=== PATIENT | female | born 1995 | race Caucasian/White ===

== ENCOUNTER 2016-11-08 17:57 | Emergency (ER) | payer MEDICAID ==
[~2016-11-08] VITALS: Ht 160 cm; Wt 52.0 kg
[2016-11-08 18:02] VITALS: Ht 160 cm; Wt 52.0 kg
[2016-11-08] MEDS ORDERED: SOD CHLORIDE 0.9% 1,000 ML IV STA (18:18)
[2016-11-08] MEDS ORDERED: KETOROLAC 30 MG INJ IV STA (18:18)
[2016-11-08] MEDS ORDERED: ONDANSETRON 4 MG INJ IV STA (18:18)
[2016-11-08] MEDS ORDERED: ACETAMINOPHEN 500 MG TAB PO STA (18:30)
--- NOTE | 2016-11-08 18:55 | ERD ---
ER Documentation Chief Complaint Date/Time DATE: 11/08/16 TIME: 18:52 Chief Complaint pt bib friend with c/o fever , right abd/flank pain HPI 31-year-old female presents here in emergency department for complaints of fever , right flank pain complaining of right thumb pain radiating to the right abdominal area urinary urgency and frequency that started 3 days ago. Patient started to have fever today, has nausea and vomiting also. Patient described the pain as sharp pain, 6/10 scale, accompanied with urinary urgency and frequency. Patient denies any dysuria. Patient was complaining of vomiting but denies any blood in the vomit. Patient denies any diarrhea or constipation. ROS All systems reviewed and are negative except as per history of present illness. Medications Home Meds Active Scripts Acetaminophen* (Tylophen*) 500 Mg Capsule, 1 CAP PO Q6H Y for PAIN AND OR ELEVATED TEMP, #20 CAP Prov:TONIA RODRÍGUEZ NP 11/08/16 Ibuprofen* (Motrin*) 600 Mg Tab, 600 MG PO Q6H Y for PAIN AND OR ELEVATED TEMP, #30 TAB Prov:TONIA RODRÍGUEZ NP 11/08/16 Phenazopyridine Hcl* (Pyridium*) 200 Mg Tab, 200 MG PO TID Y for URINARY PAIN, # 6 TAB Prov:TONIA RODRÍGUEZ NP 11/08/16 Ondansetron (Ondansetron Odt) 4 Mg Tab.rapdis, 4 MG PO Q8 Y for NAUSEA AND/OR VOMITING, #30 TAB Prov:TONIA RODRÍGUEZ NP 11/08/16 Ciprofloxacin Hcl* (Ciprofloxacin Hcl*) 500 Mg Tablet, 500 MG PO BID for 10 Days , TAB Prov:TONIA RODRÍGUEZ NP 11/08/16 Reported Medications [none] Unknown Strength No Conflict Check 11/08/16 Allergies Allergies: Coded Allergies: No Known Allergy (Unverified , 11/08/16) PMhx/Soc Medical and Surgical Hx: pt denies Medical Hx, pt denies Surgical Hx FmHx Family History: No coronary disease, No diabetes, No other Physical Exam Vitals Vital Signs Date Time Temp Pulse Resp B/P Pulse Ox O2 Delivery O2 Flow Rate FiO2 11/08/16 20:09 98.4 105 16 102/51 99 Room Air 11/08/16 18:02 104.7 120 18 155/94 100 Physical Exam GENERAL: The patient is well developed and appropriate for usual state of health, in no apparent distress. CHEST: Clear to auscultation bilaterally. There are no rales, wheezes or rhonchi. HEART: Regular rate and rhythm. No murmurs, clicks, rubs or gallops. No S3 or S4. ABDOMEN: Soft, nontender and nondistended. Good bowel sounds. No rebound or guarding. No gross peritonitis. No gross organomegaly or masses. No Lindsay sign or McBurney point tenderness. BACK: No midline tenderness, right flank/CVA tenderness noted. EXTREMITIES: Equal pulses bilaterally. There is no peripheral clubbing, cyanosis or edema. No focal swelling or erythema. Full range of motion. Grossly neurovascularly intact. NEURO: Alert and oriented. Cranial nerves 2-12 intact. Motor strength in all 4 extremities with 5/5 strength. Sensation grossly intact. Normal speech and gait. SKIN: There is no apparent rash or petechia. The skin is warm and dry. HEMATOLOGIC AND LYMPHATIC: There is no evidence of excessive bruising or lymphedema. No gross cervical, axillary, or inguinal lymphadenopathy. Result Diagram: 11/08/16189911/08/161899 Results 24 hrs Laboratory Tests Test 11/08/16 19:00 White Blood Count 22.610^3/ul Red Blood Count 3.8310^6/ul Hemoglobin 12.2g/dl Hematocrit 36.1% Mean Corpuscular Volume 94.3fl Mean Corpuscular Hemoglobin 31.9pg Mean Corpuscular Hemoglobin Concent 33.8g/dl Red Cell Distribution Width 13.0% Platelet Count 48976^3/UL Mean Platelet Volume 9.9fl Neutrophils % % Segmented Neutrophils % (Manual) 95.0% Band Neutrophils % (Manual) 3% Lymphocytes % % Monocytes % % Monocytes % (Manual) 1% Eosinophils % % Basophils % % Plasma Cells % (manual) 1% Nucleated Red Blood Cells % 0.0/100WBC Neutrophils # (Manual) 21.610^3/ul Band Neutrophils # 0.610^3/ul Lymphocytes # 10^3/ul Monocytes # 10^3/ul Absolute Monocytes (Manual) 0.210^3/ul Eosinophils # 10^3/ul Basophils # 10^3/ul Plasma Cells # (manual) 0.210^3/ul Nucleated Red Blood Cells # 10^3/ul Platelet Morphology Comment @See below Anisocytosis 1+ Microcytosis 1+ Urine Color YELLOW Urine Clarity CLOUDY Urine pH 6.0 Urine Specific [place] 1.015 Urine Ketones TRACEmg/dL Urine Nitrite POSITIVEmg/dL Urine Bilirubin NEGATIVEmg/dL Urine Urobilinogen 1+mg/dL Urine Leukocyte Esterase 3+Jacqueline/ul Urine Microscopic RBC 15/HPF Urine Microscopic WBC > 182/HPF Urine Bacteria FEW/HPF Urine Mucus FEW/HPF Urine Hemoglobin 2+mg/dL Urine Glucose NEGATIVEmg/dL Urine Total Protein 2+mg/dl Sodium Level 137mmol/L Potassium Level 3.2mmol/L Chloride Level 100mmol/L Carbon Dioxide Level 24mmol/L Anion Gap 16 Blood Urea Nitrogen 15mg/dl Creatinine 0.81mg/dl Glucose Level 116mg/dl Calcium Level 9.0mg/dl Total Bilirubin 0.8mg/dl Direct Bilirubin 0.00mg/dl Indirect Bilirubin 0.8mg/dl Aspartate Amino Transf (AST/SGOT) 11IU/L Alanine Aminotransferase (ALT/SGPT) 21IU/L Alkaline Phosphatase 68IU/L Total Protein 7.6g/dl Albumin 4.3g/dl Globulin 3.30g/dl Albumin/Globulin Ratio 1.30 Lipase 12U/L Current Medications Medications (Trade) Dose Ordered Sig/Kristen Route PRN Reason Start Time Stop Time Status Last Admin Dose Admin Sodium Chloride (NS) 1,000 ml @ 1,000 mls/hr Q1H STAT IV 11/08/16 18:18 11/08/16 19:17 DC 11/08/16 19:06 Ondansetron HCl (Zofran Inj) 4 mg ONCE STAT IV 11/08/16 18:18 11/08/16 18:19 DC 11/08/16 19:06 Ketorolac Tromethamine (Toradol) 30 mg ONCE STAT IV 11/08/16 18:18 11/08/16 18:20 DC 11/08/16 19:06 Acetaminophen (Tylenol Tab) 500 mg ONCE STAT PO 11/08/16 18:30 11/08/16 18:31 DC 11/08/16 19:05 Potassium Chloride 40 meq 40 meq ONCE ONCE PO 11/08/16 20:00 11/08/16 20:01 DC 11/08/16 20:05 Ceftriaxone Sodium (Rocephin) 50 ml @ 100 mls/hr ONCE ONCE IVPB 11/08/16 21:00 11/08/16 21:29 UNV Patient was given medicines for fever control here in the emergency department. After treatment, patient temperature improved and lower. Patient appears well and is hemodynamically stable. Patient was given medication for pain here in emergency department, after treatment, patient verbalized feeling much better. Patient's pain is improved.Patient was given Zofran here in the emergency department. After treatment, patient was able to tolerate po fluids here in the emergency department without any vomiting. There is no signs and symptoms of dehydration. Normal saline IV bolus was given here in emergency department for rehydration, patient tolerated IV fluids. IV Rocephin was given here in emergency department, tolerated medication well. PROCEDURE: CT Abdomen and Pelvis without contrast CLINICAL INDICATION: Abdominal pain TECHNIQUE: Transaxial images were obtained through the abdomen and pelvis on a multi-slice scanner without the intravenous contrast administration. No oral contrast had previously been given. Sagittal and coronal re-formations were subsequently reconstructed. One or more of the following dose reduction techniques were used: - Automated exposure control. - Adjustment of the mA and/or kV according to patient size. - Use of iterative reconstruction technique. Radiation dose: CTDIvol = 4.78 mGy; DLP = 275.57 mGy-cm. COMPARISON: No prior studies are available for comparison. FINDINGS: Lung bases: The visualized lung bases appear unremarkable. Liver: The liver is mildly enlarged with no focal lesion identified. Gallbladder: The wall is not thickened. No radiopaque stones are identified. Bile ducts: The intra and extrahepatic bile ducts are normal in caliber. Pancreas: Appears normal with no mass or inflammation evident. Spleen: Normal in size with no focal lesion. Adrenals: Normal with no mass identified. Kidneys, ureters and bladder: The kidneys are normal in size and there is no mass, pathological calcification, or hydronephrosis evident. There is no perinephric stranding. The ureters are normal in caliber and no ureteroliths are identified. The bladder appears unremarkable. Reproductive organs: The uterus is midline. No adnexal mass is evident. Stomach and bowel: The stomach appears unremarkable. There are several moderately air and fluid distended segments of proximal small bowel with no abrupt caliber change. This is most compatible with ileus. The colon appears unremarkable. There is no evidence of bowel obstruction or inflammation. Appendix: There are no findings to suggest appendicitis. Peritoneum: No free intraperitoneal fluid or air is identified. There is a small fat containing umbilical hernia. Aorta: Normal in caliber with no aneurysmal dilatation. IVC: Unremarkable. Lymph nodes: No pathologically enlarged nodes are identified. Osseous structures: Posterior rods and pedicular screws are seen to the thoracic spine extending inferiorly to the level of T12. This results in considerable artifact. IMPRESSION: 1. Mild hepatomegaly with no focal lesion. 2. Mild ileus localized to the left upper quadrant. There is no evidence of bowel obstruction or inflammation. 3. No evidence of urinary outflow obstruction or ureterolithiasis. 4. There is no free intraperitoneal fluid or air. 5. Fixation rods are seen within the thoracic spine extending inferiorly to the level of T12. Physician Rafa Date Time Electronically viewed and signed by Physician Rafa on 11/08/2016 20:24 Procedures/[facility] Medical Decision Making: Patient's symptoms was likely consistent with pyelonephritis. Patient was given IV Rocephin here in emergency department, most active causing the elevated white count, fever, nausea vomiting and right flank pain. At this time, patient appears well and is hemodynamically stable, no risk factors. Patient is young, no other medical problems, outpatient management is appropriate at this time, I discussed this case with my attending physician, Dr. Ramirez. He agrees with plan at this time,strict return to ER precautions was advised that patient for worsening symptoms or not improvement. There is low suspicion for abdominal emergencies at this time. Patients abdominal exam is normal at this time. Patients radiology exam does not show any abdominal emergencies at this time. There is low suspicion for appendicitis , cholecystitis, abdominal aortic aneurysms or peritonitis at this time. There is low suspicion for sepsis. Patient appears well and is hemodynamically stable. no Septic stone, no obstructed stone. Disposition: Home. Condition: Stable Prescription ciprofloxacin, Pyridium, ibuprofen, Tylenol, Zofran. Instructions: Patient is advised to take medications as prescribed. Patient is advised to rest, increase fluid intake and do brat diet for next 1-2 days and progress as tolerated. Patient is advised that if symptoms are worse, severe abdominal pain, uncontrolled vomiting, high fever, severe flank pain, worst signs and symptoms, to return to the emergency department immediately. Otherwise, patient can follow up with primary care doctor in 5-7 days. Departure Diagnosis: Primary Impression: Pyelonephritis Condition: Stable Patient Instructions: Pyelonephritis, Female (Adult) Additional Instructions: Patient is advised to take medications as prescribed. Patient is advised to rest, increase fluid intake and do brat diet for next 1-2 days and progress as tolerated. Patient is advised that if symptoms are worse, severe abdominal pain , uncontrolled vomiting, high fever, severe flank pain, worst signs and symptoms , to return to the emergency department immediately. Otherwise, patient can follow up with primary care doctor in 5-7 days. TONIA RODRÍGUEZ NP Nov 08, 2016 18:55
[2016-11-08 19:14] LABS: ABNORMAL IP MESSAGE 1; HEMATOCRIT 36.1 % (37.0-47.0); HEMOGLOBIN 12.2 g/dl (12.0-16.0); MEAN CORPUSCULAR HEMOGLOBIN 31.9 pg (29.0-33.0); MEAN CORPUSCULAR HGB CONC 33.8 g/dl (32.0-37.0); MEAN CORPUSCULAR VOLUME 94.3 fl (82.0-101.0); MEAN PLATELET VOLUME 9.9 fl (7.4-10.4); PLATELET COUNT 184 10^3/UL (140-415); RED BLOOD COUNT 3.83 10^6/ul (4.20-5.40); WHITE BLOOD COUNT 22.6 10^3/ul (4.8-10.8)
[2016-11-08 19:17] LABS: POSITIVE DIFF @See below
[2016-11-08 19:23] LABS: ADD UMIC YES; UR ASCORBIC ACID NEGATIVE (NEGATIVE); UR BACTERIA FEW /HPF (NONE SEEN); UR BILIRUBIN (Dip) NEGATIVE (NEGATIVE); UR BLOOD (Dip) 2+ mg/dL (NEGATIVE); UR CLARITY CLOUDY (CLEAR); UR COLOR YELLOW (YELLOW); UR GLUCOSE (Dip) NEGATIVE (NEGATIVE); UR KETONES (Dip) TRACE mg/dL (NEGATIVE); UR LEUKOCYTE ESTERASE (Dip) 3+ Leu/ul (NEGATIVE); UR MUCUS FEW /HPF (NONE SEEN); UR NITRITE (Dip) POSITIVE (NEGATIVE); UR RBC 15 /HPF (0-5); UR SPECIFIC GRAVITY (Dip) 1.015 (1.003-1.030); UR TOTAL PROTEIN (Dip) 2+ mg/dl (NEGATIVE); UR UROBILINOGEN (Dip) 1+ mg/dL (NEGATIVE)
[2016-11-08 19:39] LABS: ALBUMIN 4.3 g/dl (3.3-4.9); ALBUMIN/GLOBULIN RATIO 1.3; BILIRUBIN,INDIRECT 0.8 mg/dl (0-1.1); BILIRUBIN,TOTAL 0.8 mg/dl (0.2-1.3); CREATININE 0.81 mg/dl (0.44-1.00); POTASSIUM 3.2 mmol/L (3.5-5.1); TOTAL PROTEIN 7.6 g/dl (6.1-8.1)
[2016-11-08 19:50] LABS: ANISOCYTOSIS 1+ (0-0); MICROCYTOSIS 1+ (0-0); MONOCYTES % (M) 1 % (0-11); PLASMA CELLS #M 0.2 10^3/ul (0.0-0.0); PLASMAC%(M) 1 % (0)
[2016-11-08] MEDS ORDERED: POTASSIUM CHLORIDE (SR) 20 MEQ TAB PO ONE (20:00)
[2016-11-08 20:09] VITALS: BP 102/51; PULSE 105; RESP 16; TEMP 98.4
--- NOTE | 2016-11-08 20:24 | RADRPT ---
PROCEDURE: CT Abdomen and Pelvis without contrast CLINICAL INDICATION: Abdominal pain TECHNIQUE: Transaxial images were obtained through the abdomen and pelvis on a multi-slice scanner without the intravenous contrast administration. No oral contrast had previously been given. Sagit aron and coronal re-formations were subsequently reconstructed. One or more of the following dose reduction techniques were used: - Automated exposure control. - Adjustment of the mA and/or kV according to patient size. - Use of iterative reconstruction technique. Radiation dose: CTDIvol = 4.78 mGy; DLP = 275.57 mGy-cm. COMPARISON: No prior studies are available for comparison. FINDINGS: Lung bases: The visualized lung bases appear unremarkable. Liver: The liver is mildly enlarged with no focal lesion identified. Gallbladder: The wall is not thickened. No radiopaque stones are identified. Bile ducts: The intra and extrahepatic bile ducts are normal in caliber. Pancreas: Appears normal with no mass or inflammation evident. Spleen: Normal in size with no focal lesion. Adrenals: Normal with no mass identified. Kidneys, ureters and bladder: The kidneys are normal in size and there is no mass, pathological calc ification, or hydronephrosis evident. There is no perinephric stranding. The ureters are normal in c aliber and no ureteroliths are identified. The bladder appears unremarkable. Reproductive organs: The uterus is midline. No adnexal mass is evident. Stomach and bowel: The stomach appears unremarkable. There are several moderately air and fluid dis tended segments of proximal small bowel with no abrupt caliber change. This is most compatible with ileus. The colon appears unremarkable. There is no evidence of bowel obstruction or inflammation. Appendix: There are no findings to suggest appendicitis. Peritoneum: No free intraperitoneal fluid or air is identified. There is a small fat containing umbi lical hernia. Aorta: Normal in caliber with no aneurysmal dilatation. IVC: Unremarkable. Lymph nodes: No pathologically enlarged nodes are identified. Osseous structures: Posterior rods and pedicular screws are seen to the thoracic spine extending inf eriorly to the level of T12. This results in considerable artifact. IMPRESSION: 1. Mild hepatomegaly with no focal lesion. 2. Mild ileus localized to the left upper quadrant. There is no evidence of bowel obstruction or i nflammation. 3. No evidence of urinary outflow obstruction or ureterolithiasis. 4. There is no free intraperitoneal fluid or air. 5. Fixation rods are seen within the thoracic spine extending inferiorly to the level of T12. Physician Rafa Date Time Electronically viewed and signed by Brenda Neves Physician on 11/08/2016 20:24 RH/
[2016-11-08] MEDS ORDERED: PHEN-538 PO (20:42)
[2016-11-08] MEDS ORDERED: IBUP-1542 PO (20:42)
[2016-11-08] MEDS ORDERED: ACET500C5 PO (20:42)
[2016-11-08] MEDS ORDERED: CIPR500T4 PO (20:42)
[2016-11-08] MEDS ORDERED: ONDA4TAB14 PO (20:42)
[2016-11-08] MEDS ORDERED: CEFTRIAXONE 2 GM/50 ML (PMX) 50 ML IVPB ONE (21:00)
== END 2016-11-08 21:28 | disposition home or self-care (01) ==
LOC: FTE 17:57
DX: N12 Tubulo-interstitial nephritis, not specified as acute or chronic (principal)
CPT/HCPCS: 36415; 74176; 80053; 81001; 83690; 85025; 87086; 96361; 96365; 96375; J0696; J1885; J2405; J7030; Z7502; Z7610

== ENCOUNTER 2018-10-24 10:32 | Emergency (ER) | payer OTHER ==
[~2018-10-24] VITALS: Ht 160 cm; Wt 52.7 kg
[~2018-10-24 10:32] MED LIST: PREN-93 PO
[2018-10-24 10:37] VITALS: BP 106/54; PULSE 70; RESP 20; Ht 160 cm; Wt 52.7 kg
[2018-10-24] MEDS ORDERED: SOD CHLORIDE 0.9% 100 ML ONE (12:13)
[2018-10-24] MEDS ORDERED: IOHEXOL 300MG/ML 150 ML BTL ONE (12:13)
--- NOTE | 2018-10-24 14:03 | ERD ---
ER Documentation Chief Complaint Chief Complaint bump in the epigastric area HPI 83-year-old female presenting with a pulsatile mass in her epigastric region. Patient denies any pain but does feel nauseous. She has acid reflux. Denies any chest pain or shortness of breath. Denies any changes to urination or bowel movement. Denies medical problems. NKDA. Surgical history is back pain and surgical history for scoliosis. Social history smokes marijuana about 3 times a month. ROS All systems reviewed and are negative except as per history of present illness. Medications Home Meds Reported Medications Vit No.124/Iron/FA ( Vitamin Tablet) 1 Each Tablet, 1 EACH PO DAILY, TAB 08/01/17 Allergies Allergies: Coded Allergies: No Known Allergy (Unverified , 11/08/16) PMhx/Soc Medical and Surgical Hx: pt denies Medical Hx, pt denies Surgical Hx History of Surgery: Yes (BACK) Anesthesia Reaction: No Hx Neurological Disorder: No Hx Respiratory Disorders: No Hx Cardiac Disorders: No Hx Psychiatric Problems: No Hx Miscellaneous Medical Probl: No Hx Alcohol Use: Yes Hx Substance Use: No Hx Tobacco Use: No Smoking Status: Never smoker FmHx Family History: No diabetes, No coronary disease, No other Physical Exam Vitals Vital Signs Date Temp Pulse Resp B/P (MAP) Pulse Ox O2 O2 Flow FiO2 Time Delivery Rate 10/24/18 98.3 70 20 106/54 98 10:37 (71) Physical Exam GENERAL: The patient is well-appearing, well-nourished, in no acute distress HEENT: Atraumatic. Conjunctivae are pink. Pupils equal, round, and reactive to light. There is no scleral icterus. Tympanic membranes clear bilaterally. Oropharynx clear. CHEST: Clear to auscultation bilaterally. There are no rales, wheezes or rhonchi. HEART: Regular rate and rhythm. No murmurs, clicks, rubs or gallops. No S3 or S4. ABDOMEN:Soft, nontender and nondistended. Good bowel sounds. No rebound or guarding. No gross peritonitis. No gross organomegaly or masses. Small mass noted inferior to the epigastric region. Result Diagram: 10/24/18 1104 10/24/18 1104 Results 24 hrs Laboratory Tests Test 10/24/18 11:04 10/24/18 11:09 White Blood Count 6.4 10^3/ul Red Blood Count 3.64 10^6/ul Hemoglobin 11.6 g/dl Hematocrit 35.5 % Mean Corpuscular Volume 97.5 fl Mean Corpuscular Hemoglobin 31.9 pg Mean Corpuscular Hemoglobin Concent 32.7 g/dl Red Cell Distribution Width 12.7 % Platelet Count 189 10^3/UL Mean Platelet Volume 10.2 fl Immature Granulocytes % 0.200 % Neutrophils % 57.2 % Lymphocytes % 29.0 % Monocytes % 9.8 % Eosinophils % 3.0 % Basophils % 0.8 % Nucleated Red Blood Cells % 0.0 /100WBC Immature Granulocytes # 0.010 10^3/ul Neutrophils # 3.6 10^3/ul Lymphocytes # 1.8 10^3/ul Monocytes # 0.6 10^3/ul Eosinophils # 0.2 10^3/ul Basophils # 0.1 10^3/ul Nucleated Red Blood Cells # 0.0 10^3/ul Urine Color STRAW Urine Clarity CLEAR Urine pH 7.0 Urine Specific [place] 1.009 Urine Ketones NEGATIVE mg/dL Urine Nitrite NEGATIVE mg/dL Urine Bilirubin NEGATIVE mg/dL Urine Urobilinogen NEGATIVE mg/dL Urine Leukocyte Esterase NEGATIVE Jacqueline/ul Urine Hemoglobin NEGATIVE mg/dL Urine Glucose NEGATIVE mg/dL Urine Total Protein NEGATIVE mg/dl Sodium Level 141 mmol/L Potassium Level 3.8 mmol/L Chloride Level 106 mmol/L Carbon Dioxide Level 30 mmol/L Anion Gap 5 Blood Urea Nitrogen 14 mg/dl Creatinine 0.73 mg/dl Est Glomerular Filtrat Rate mL/min > 60 mL/min Glucose Level 88 mg/dl Calcium Level 9.5 mg/dl Total Bilirubin 0.5 mg/dl Direct Bilirubin 0.00 mg/dl Indirect Bilirubin 0.5 mg/dl Aspartate Amino Transf (AST/SGOT) 12 IU/L Alanine Aminotransferase (ALT/SGPT) 15 IU/L Alkaline Phosphatase 38 IU/L Total Protein 6.9 g/dl Albumin 4.5 g/dl Globulin 2.40 g/dl Albumin/Globulin Ratio 1.87 Lipase 29 U/L POC Beta HCG, Qualitative NEGATIVE Current Medications Medications Dose Sig/Kristen Start Time Status Last (Trade) Ordered Route PRN Stop Time Admin Dose Reason Admin Sodium 100 ml @ ud STK-MED 10/24/18 DC 10/24/18 Chloride ONCE .ROUTE 12:13 12:27 7/31/19 12:14 Iohexol 150 ml STK-MED 10/24/18 DC 10/24/18 (Omnipaque ONCE .ROUTE 12:13 12:27 300mg/ ml) 10/24/18 12:14 Procedures/[facility] DIAGNOSTIC IMAGING REPORT Patient: JODIE MCBRIDE : 1995 Age: 23 Sex: F MR #: [id number] DOS: 10/24/18 1051 Ordering MD: MARIA ALEJANDRA RDZ PA-C Location: E Room/Bed: PROCEDURE: CT Abdomen and Pelvis with contrast. CLINICAL INDICATION: Pulsatile abdominal mass TECHNIQUE: CT scan of the abdomen and pelvis with contrast was performed utilizing axial tomographic images from the domes the diaphragm to the symphysis pubis. The patient was scanned post uncomplicated intravenous administration of 100 cc of Omnipaque-300. Coronal and sagittal reformatted images were obtained from the axial source images. Images were reviewed on a high-resolution PACS workstation. The total exam CTDI equals 5.72 mGy and the total exam DLP equals 282.43 mGy-cm. One or more of the following dose reduction techniques were used: Automated exposure control, adjustment of the mA and / or kV according to patient size, or use of iterative reconstruction technique. DICOM images are available. COMPARISON: CT 11/08/2016 FINDINGS: The lung bases are clear . The liver is normal in size and contour. No focal intrahepatic masses are identified. There is no intra or extrahepatic biliary dilatation. The gallbladder is unremarkable by CT criteria. The spleen, pancreas, and adrenal glands are unremarkable. The kidneys are symmetric in size and demonstrate normal enhancement. No hydronephrosis or hydroureter is seen. No renal parenchymal mass is identified. The urinary bladder is unremarkable. The bowel demonstrates normal course and caliber. There is no evidence of bowel obstruction. No bowel wall thickening is identified. The appendix is normal in appearance. The uterus and adnexa are unremarkable. There is small free fluid in the pelvis. No intraperitoneal free air or abscess identified. No retroperitoneal, mesenteric, or inguinal adenopathy is identified. The abdominal aorta and major branching vessels are normal in caliber. The osseous structures demonstrate postsurgical changes from posterior fixation of the thoracic spine, partially imaged. No significant subcutaneous soft tissue abnormality is identified. IMPRESSION: 1. No acute intra-abdominal abnormality identified. No abdominal mass or aneurysm identified. 2. Small free fluid in the pelvis. MDM: 23-year-old female presents with pulsatile abdominal mass. CT showed no signs of abdominal aneurysm or abdominal mass. Patient is discharged and told to follow-up with primary care. Patient is told symptoms change or worsen to return immediately to the ER. All questions answered at discharge. Departure Diagnosis: Primary Impression: Abdominal pain Condition: Stable Patient Instructions: Abdominal Pain Referrals: [facility] YOU HAVE RECEIVED A MEDICAL SCREENING EXAM AND THE RESULTS INDICATE THAT YOU DO NOT HAVE A CONDITION THAT REQUIRES URGENT TREATMENT IN THE EMERGENCY DEPARTMENT. FURTHER EVALUATION AND TREATMENT OF YOUR CONDITION CAN WAIT UNTIL YOU ARE SEEN IN YOUR DOCTORS OFFICE WITHIN THE NEXT 1-2 DAYS. IT IS YOUR RESPONSIBILITY TO MAKE AN APPOINTMENT FOR FOLOW-UP CARE. IF YOU HAVE A PRIMARY DOCTOR --you should call your primary doctor and schedule an appointment IF YOU DO NOT HAVE A PRIMARY DOCTOR YOU CAN CALL OUR PHYSICIAN REFERRAL HOTLINE AT IF YOU CAN NOT AFFORD TO SEE A PHYSICIAN YOU CAN CHOSE FROM THE FOLLOWING [facility] [address] [facility]. [facility] [address] [facility] [facility] [address] [facility] [facility] [address] [facility] [facility] [address] [facility]. [facility]. [address] Additional Instructions: FOLLOW UP WITH YOUR PRIMARY CARE PHYSICIAN TOMORROW.Return to this facility if you are not improving as expected. ELVIN RDZ PA-C Oct 24, 2018 14:03
== END 2018-10-24 13:08 | disposition home or self-care (01) ==
LOC: FTE 10:32
DX: R10.13 Epigastric pain (principal); R19.06 Epigastric swelling, mass or lump
CPT/HCPCS: 36415; 74177; 80053; 81003; 81025; 83690; 85025; Q9967; Z7502; Z7610